=== PATIENT | male | born 1990 | race Caucasian/White ===

== ENCOUNTER 2024-11-23 17:48 | Emergency (ER) | payer SELFPAY ==
[~2024-11-23] VITALS: Ht 167.6 cm; Wt 60.0 kg
[2024-11-23 17:56] VITALS: O2SAT 99
[2024-11-23] MEDS: HALOPERIDOL LACTATE 5MG/ML VIAL IM ONE (18:48)
[2024-11-23] MEDS: LORAZEPAM 2MG/ML INJ IM ONE (18:48)
[2024-11-23 22:25] LABS: CLARITY URINE CLEAR (CLEAR); COLOR URINE YELLOW (YELLOW); GLUCOSE URINE NEGATIVE (NEGATIVE); KETONES URINE NEGATIVE (NEGATIVE); LEUKOCYTE ESTERASE URINE NEGATIVE (NEGATIVE); NITRITE URINE NEGATIVE (NEGATIVE); OCCULT BLOOD URINE NEGATIVE (NEGATIVE); PH URINE 5.5 (4.5-8.0); PROTEIN URINE NEGATIVE (NEGATIVE); UROBILINOGEN URINE 0.2 E.U./dL (0.2-1.0)
[2024-11-23 22:29] LABS: BASOPHILS % 0.5 % (0.0-2.0); HEMATOCRIT. 41.1 % (42.0-52.0); HEMOGLOBIN. 13.5 g/dL (14.0-18.0); LYMPHOCYTES % 28.3 % (20.0-50.0); MEAN CORPUSCULAR HEMOGLOBIN 28.3 pg (28.0-32.0); MEAN CORPUSCULAR HGB CONC 32.8 g/dL (31.0-37.0); MEAN CORPUSCULAR VOLUME 86.2 fL (80.0-94.0); MONOCYTES % 10.4 % (2.0-8.0); NEUTROPHILS % 58.8 % (40.0-76.0); PLATELET 270 x1000/uL (130-400); RED BLOOD CELL COUNT 4.77 mill/uL (4.7-6.1); RED CELL DISTRIBUTION WIDTH 14.7 % (11.6-14.6); WHITE BLOOD COUNT 9.8 x1000/uL (4.5-11.0)
[2024-11-23 22:35] LABS: *AMPHETAMINES SCREEN URINE PRESUMPTIVE POSITIVE (NEGATIVE); *BARBITURATES SCREEN URINE NEGATIVE (NEGATIVE); *BENZODIAZEPINES SCREEN URINE NEGATIVE (NEGATIVE); *COCAINE SCREEN URINE NEGATIVE (NEGATIVE); CANNABINOID URINE SCREEN PRESUMPTIVE POSITIVE (NEGATIVE); ECSTASY MDMA SCREEN URINE CONF.TEST INDICATED (NEGATIVE); METHADONE URINE SCREEN NEGATIVE (NEGATIVE); OPIATES URINE SCREEN NEGATIVE (NEGATIVE); PHENCYCLIDINE URINE SCREEN PRESUMTIVE POSITIVE (NEGATIVE)
[2024-11-23 22:42] LABS: CARBON DIOXIDE 28 mEq/L (21-32); CHLORIDE 107 mEq/L (98-107); POTASSIUM 3.6 mEq/L (3.5-5.1); SODIUM 143 mEq/L (136-145)
[2024-11-23 22:43] LABS: CALCIUM 9.3 mg/dL (8.7-10.4)
[2024-11-23 22:47] LABS: CREATININE 0.8 mg/dL (0.6-1.3)
[2024-11-23 22:48] LABS: GLUCOSE 98 mg/dL (70-105); UREA NITROGEN BLOOD 24 mg/dL (9-23)
[2024-11-23 22:49] LABS: ACETAMINOPHEN < 2 ug/mL (10-30)
[2024-11-23 22:50] LABS: ETHANOL BLOOD < 10 mg/dL (<10)
[2024-11-24 06:00] VITALS: TEMP 36.9
[2024-11-24 08:12] VITALS: BP 120/84; PULSE 71; RESP 16; O2SAT 100
== END 2024-11-24 13:11 | disposition home or self-care (01) ==
LOC: EDBD 17:48 → ER 17:48
DX: F19.10 Other psychoactive substance abuse, uncomplicated (principal); Z20.822 Contact with and (suspected) exposure to COVID-19
CPT/HCPCS: 80305; 80048; 81003; 80307; 80329; 80320; 85025; 36415; 96372; 99285; 87426; J1630; J2060; Z7610 ×2; G0480